=== PATIENT | female | born 1940 | race Caucasian/White ===

== ENCOUNTER 2017-02-13 01:53 | Emergency (ER) | payer MEDICARE, OTHER ==
[~2017-02-13] VITALS: Ht 175.3 cm; Wt 69.1 kg
[~2017-02-13 01:53] MED LIST: LEVO100T46 PO; NORCO10T PO; ONDA4TAB59 PO; ZOLP10TA5 PO
[2017-02-13] MEDS ORDERED: LORazepam 1 MG tablet PO STA (02:17)
[2017-02-13] MEDS ORDERED: oxyCODONE/APAP 10/325mg tablet PO ONE (02:20)
[2017-02-13 02:32] LABS: CLARITY,URINE Clear (Clear); COLOR,URINE Yellow (Yellow); GLUCOSE, URINE Negative (Neg); KETONES,URINE Negative (Neg); LEUKOCYTE ESTERASE ,URINE Trace (Neg); NITRITES, URINE Negative (Neg); OCCULT BLOOD,URINE Negative (Neg); PH,URINE 6.5 (4.8-8.0); PROTEIN,URINE Negative (Neg); UROBILINOGEN,URINE 0.2 E.U/dL (0.2-1.0)
[2017-02-13 02:35] LABS: UA COLLECTION TYPE CLN CATCH MIDSTREAM
[2017-02-13 02:40] LABS: BACTERIA,URINE 1+ /HPF (Neg); MUCUS STRANDS NONE SEEN /LPF (Neg); RBC,URINE 0-2 /HPF (0-2); SQUAMOUS EPITHELIAL CELL,UR MODERATE /LPF (FEW); WBC,URINE 0-4 /HPF (0-4)
[2017-02-13] MEDS ORDERED: LORazepam 0.5 MG tablet PO ONE (02:42)
[2017-02-13 03:51] VITALS: BP 182/73
== END 2017-02-13 03:53 | disposition home or self-care (01) ==
LOC: ER 01:54
DX: I10 Essential (primary) hypertension (principal); R10.2 Pelvic and perineal pain; G89.29 Other chronic pain; C50.919 Malignant neoplasm of unspecified site of unspecified female breast; C71.9 Malignant neoplasm of brain, unspecified; Z87.442 Personal history of urinary calculi; Z79.899 Other long term (current) drug therapy; Z98.890 Other specified postprocedural states; Z88.2 Allergy status to sulfonamides; Z88.8 Allergy status to other drugs, medicaments and biological substances
CPT/HCPCS: 81001; 87088; 93005; 99285

== ENCOUNTER 2017-06-20 01:17 | Emergency (ER) | payer MEDICARE, OTHER ==
[~2017-06-20] VITALS: Ht 175.3 cm; Wt 70.0 kg
[2017-06-20] MEDS ORDERED: DIAZ5TAB4 PO (01:34)
[2017-06-20] MEDS ORDERED: OXYC-658 PO (01:34)
[2017-06-20] MEDS ORDERED: LIDOcaine/PRILOcaine 5gm cream TP ONE ×2 (01:40)
[2017-06-20] MEDS ORDERED: LIDO15CR11 TOP (02:21)
[2017-06-20 02:43] VITALS: BP 119/46
== END 2017-06-20 02:46 | disposition home or self-care (01) ==
LOC: ER 01:18
DX: M54.5 Low back pain (principal); I10 Essential (primary) hypertension; G89.29 Other chronic pain; Z98.890 Other specified postprocedural states; Z88.2 Allergy status to sulfonamides; Z88.8 Allergy status to other drugs, medicaments and biological substances; Z79.899 Other long term (current) drug therapy
CPT/HCPCS: 99283

== ENCOUNTER 2017-07-03 11:13 | Emergency (ER) | payer MEDICARE, OTHER ==
[~2017-07-03] VITALS: Ht 175.3 cm; Wt 67.0 kg
[~2017-07-03 11:13] MED LIST changes: +DIAZ5TAB4 PO; +LIDO15CR11 TOP; -NORCO10T PO; -ONDA4TAB59 PO; +OXYC-658 PO
[2017-07-03] MEDS ORDERED: normal saline 1000ML IV soln IVB ONE (12:15)
[2017-07-03 12:34] LABS: BASOPHILS % (AUTO) 0.5 % (0-1); EOSINOPHILS # (AUTO) 0.2 X10'3 (0-0.9); EOSINOPHILS % (AUTO) 2.5 % (0-6); HEMATOCRIT 40.1 % (35.0-45.0); HEMOGLOBIN 13.4 g/dl (12.0-16.0); LYMPHOCYTES # (AUTO) 1.5 X10'3 (1.1-4.8); LYMPHOCYTES % (AUTO) 19.6 % (21-51); MEAN CORPUSCULAR HEMOGLOBIN 28.3 PG (27.0-31.0); MEAN CORPUSCULAR HGB CONC 33.5 % (33.0-36.5); MEAN CORPUSCULAR VOLUME 84.5 FL (78-98); MEAN PLATELET VOLUME 7.8 FL (7.4-10.4); MONOCYTES # (AUTO) 0.5 X10'3 (0-0.9); MONOCYTES % (AUTO) 6.4 % (2-12); NEUTROPHILS # (AUTO) 5.4 X10'3 (1.8-7.7); PLATELET COUNT 278 X10'3 (140-440); RED BLOOD COUNT 4.74 X10'6 (4.20-5.60); RED CELL DISTRIBUTION WIDTH 15.2 % (11.5-14.5); WHITE BLOOD COUNT 7.6 X10'3 (4.5-11.0)
[2017-07-03 12:49] LABS: ALANINE AMINOTRANSFERASE 17 U/L (12-78); ALBUMIN/GLOBULIN RATIO 1.1 (1.1-1.5); ALKALINE PHOSPHATASE 88 IU/L (46-116); ANION GAP 12 (8-16); ASPARTATE AMINO TRANSFERASE 15 U/L (10-37); BILIRUBIN,TOTAL 0.5 MG/DL (0.1-1.0); BLOOD UREA NITROGEN 15 MG/DL (7-18); BUN/CREATININE RATIO 13.3 (6.6-38.0); CHLORIDE 105 MMOL/L (99-107); CREATININE 1.13 MG/DL (0.40-0.90); GLUCOSE 91 MG/DL (70-104); SODIUM 141 MMOL/L (135-145); TOTAL CARBON DIOXIDE 24.4 MMOL/L (24-32); TOTAL PROTEIN 7.6 G/DL (6.4-8.2); eGFR 47 ML/MIN
[2017-07-03] MEDS ORDERED: oxyCODONE SR 10mg (sust. release) tab PO ONE (13:10)
[2017-07-03 13:12] LABS: CLARITY,URINE CLEAR (Clear); COLOR,URINE YELLOW (Yellow); GLUCOSE, URINE NEGATIVE (Neg); KETONES,URINE NEGATIVE (Neg); LEUKOCYTE ESTERASE ,URINE SMALL (Neg); NITRITES, URINE NEGATIVE (Neg); OCCULT BLOOD,URINE NEGATIVE (Neg); PROTEIN,URINE NEGATIVE (Neg); UROBILINOGEN,URINE 0.2 E.U/dL (0.2-1.0)
[2017-07-03 13:15] LABS: UA COLLECTION TYPE CLN CATCH MIDSTREAM
[2017-07-03 13:19] LABS: BACTERIA,URINE 3+ /HPF (Neg); RBC,URINE 0-2 /HPF (0-2); SQUAMOUS EPITHELIAL CELL,UR MODERATE /LPF (FEW); WBC,URINE 20-30 /HPF (0-4)
[2017-07-03 14:02] VITALS: BP 170/90
== END 2017-07-03 14:04 | disposition home or self-care (01) ==
LOC: ER 11:13
DX: M79.2 Neuralgia and neuritis, unspecified (principal); T42.6X5A Adverse effect of other antiepileptic and sedative-hypnotic drugs, initial encounter; F11.23 Opioid dependence with withdrawal; I10 Essential (primary) hypertension; G89.29 Other chronic pain; Z85.841 Personal history of malignant neoplasm of brain; Z85.43 Personal history of malignant neoplasm of ovary; Z85.3 Personal history of malignant neoplasm of breast; Z87.442 Personal history of urinary calculi; Z98.890 Other specified postprocedural states; Z88.2 Allergy status to sulfonamides; Z88.8 Allergy status to other drugs, medicaments and biological substances; Z79.899 Other long term (current) drug therapy; Y92.89 Other specified places as the place of occurrence of the external cause
CPT/HCPCS: 36415; 80053; 81001; 85025; 87088; 93005; 99285; J7030

== ENCOUNTER 2018-02-25 13:51 | Emergency (ER) | payer MEDICARE, OTHER ==
[~2018-02-25] VITALS: Ht 175.3 cm; Wt 61.4 kg
[2018-02-25 14:00] VITALS: BP 182/86
== END 2018-02-25 14:30 | disposition home or self-care (01) ==
LOC: ER 13:55
DX: R42 Dizziness and giddiness (principal); T40.4X5A Adverse effect of other synthetic narcotics, initial encounter; T42.6X5A Adverse effect of other antiepileptic and sedative-hypnotic drugs, initial encounter; R47.81 Slurred speech; I10 Essential (primary) hypertension; G89.29 Other chronic pain; Z98.890 Other specified postprocedural states; Z85.3 Personal history of malignant neoplasm of breast; Z88.2 Allergy status to sulfonamides; Z88.6 Allergy status to analgesic agent; Z88.8 Allergy status to other drugs, medicaments and biological substances; Z79.899 Other long term (current) drug therapy; Y92.89 Other specified places as the place of occurrence of the external cause
CPT/HCPCS: 99281; 99282

== ENCOUNTER 2018-12-07 22:17 | Emergency (ER) | payer MEDICARE, OTHER ==
[~2018-12-07] VITALS: Ht 172.7 cm; Wt 56.8 kg
[2018-12-07] MEDS ORDERED: oxyCODONE/APAP 5-325mg tablet PO ONE (22:55)
[2018-12-07] MEDS ORDERED: buprenorphine/naloxone 8MG-2MG SUBlingual film SL SCH (23:00)
[2018-12-07] MEDS ORDERED: buprenorphine/naloxone 8MG-2MG SUBlingual film SL ONE (23:00)
[2018-12-07] MEDS ORDERED: ondansetron 4mg rapidly disintigrating tab PO ONE (23:50)
[2018-12-08 00:32] VITALS: BP 166/83
== END 2018-12-08 00:42 | disposition home or self-care (01) ==
LOC: ER 22:18
DX: G89.29 Other chronic pain (principal); R10.2 Pelvic and perineal pain; F11.23 Opioid dependence with withdrawal; I10 Essential (primary) hypertension; Z98.890 Other specified postprocedural states; Z88.2 Allergy status to sulfonamides; Z88.6 Allergy status to analgesic agent; Z79.899 Other long term (current) drug therapy
CPT/HCPCS: 99284